=== PATIENT | female | born 1955 | race Caucasian/White ===

== ENCOUNTER 2018-01-06 12:58 | Inpatient (IN) ==
--- NOTE | 2018-01-06 13:41 | History & Physical Report ---
Date of Encounter: 01/06/18 Time of Encounter: 13:41 24 Hour HP Update - Instructions Instructions: If the History and Physical is less than 30 days old and was completed prior to A.M. admission and or procedure and has NOT been updated on calendar day of procedure please complete this update prior to performing procedure. - Update Patient reports changes in Medical Condition: No Changes in examination, assessment, or condition: No Changes in Medication: No Preop tests/diagnostics Reviewed: Yes Surgery Remains Indicated: Yes Consent for Planned Operative Procedure(s) Verified: Yes - Pre-Operative Checklist Preoperative Checklist Indicated: No Prophylactic Antibiotic Ordered: Yes Is VTE Prophylaxis Indicated?: Yes
--- NOTE | 2018-01-06 13:42 | Anesthesia Evaluation PreOp ---
Date of Encounter: 01/06/18 Time of Encounter: 13:39 - Past History Planned Operation: L robotic Total hip arthroplasty Cardiac History: Denies any Significant Hx Pulmonary History: Denies Any Significant HX IMMIGRATION MANAGER History: Other (anxiety) Other Medical History: Denies Any Significant HX Anesthesia History: No Prior Anesthetic Complications, Past Anesthesia (R foot sx, D&C tubal, breast aug) Alcohol Use: occasionally Drug use: none Medications and Allergies Aspirin Enteric Coated [Aspirin EC] 325 mg PO BID #20 tablet. 01/06/18 [Rx] Imipramine HCl [Tofranil] 25 mg PO HS 01/06/18 [History] OxyCODONE Immed Rel [Roxicodone 5 MG] 5 mg PO Q4HR PRN 5 Days #20 tablet [Rx] Temazepam [Restoril] 15 mg PO HS 01/06/18 [History] 3 Allergy/AdvReac Type Severity Reaction Status Date / Time No Known Allergies Allergy Verified 01/06/18 13:42 - Meds/Allergy Pre-op Review Medications Reviewed: Yes Allergies Reviewed: Yes Beta Blockers on Current Med List: No Anesthesia Exam Height: 64" Weight: 134lbs - HEENT Pupil (Motor): Pupils equal, EOMI Mallampati: II Teeth: Normal Oral Opening: Greater than 3 - IMMIGRATION MANAGER LOC: Oriented IMMIGRATION MANAGER Motor: Normal RUE, Normal LUE, Normal RLE, Normal LLE, Normal Face IMMIGRATION MANAGER Sensory: Normal: RUE, LUE, RLE, LLE, Face - Cardiac Rhythm: Regular - Pulmonary Breath Sounds: bilateral Clear Respiratory Effort: Symmetrical Anesthesia Assess/Plan ASA Score: 2 Modified [place] Scale for Level of Consciousness: Cooperative, oriented, and tranquil Anesthetic Plan: General Monitoring Plan: Standard Monitors Recovery Plan: PACU
--- NOTE | 2018-01-06 13:43 | Discharge Summary ---
Orders not resulted at time of discharge: Pending orders 01/06/18 13:15 XR hip complete LT [XR] Routine H/H [Hemoglobin and Hematocrit] [HEME] Routine Date of Encounter: 01/09/18 Time of Encounter: 07:49 - Discharge Diagnosis (1) Displaced fracture of left femoral neck Priority: Primary Status: Acute (2) Status post total hip replacement, left Priority: Primary Status: Acute - Hospital Course Hospital course: Ms. Ma is a 62 year old female Status post left total hip replacement for fracture. The patient had an uneventful postoperative course. They received antibiotics and physical therapy and were discharged in stable condition. There will follow -up in the office in 2 weeks. - Time Spent with Patient Total time spent providing and/or coordinating discharge services: - Discharge Medications Home Medications: Aspirin Enteric Coated [Aspirin EC] 325 mg PO BID #20 tablet. 01/06/18 [Rx] Imipramine HCl [Tofranil] 25 mg PO HS 01/06/18 [History] OxyCODONE Immed Rel [Roxicodone 5 MG] 5 mg PO Q4HR PRN 5 Days #20 tablet [Rx] Temazepam [Restoril] 15 mg PO HS 01/06/18 [History] Allergies/Adverse Reactions: 3 Allergy/AdvReac Type Severity Reaction Status Date / Time No Known Allergies Allergy Verified 01/06/18 13:42 Primary care physician: PCP NONE - Patient Status Disposition: Home, Self-Care Condition: Good Functional capacity at discharge: uses cane/walker Overall status at discharge: patient is progressing back to baseline - Discharge Instructions Follow Up With: Abrahan Olivas MD [Partnered Physician] - 02/07/18 9:20 am Barb Castro PAC [Physician Labor Law Professor] - 01/13/18 8:15 am (ALSO, 01/19/18 @ 10:30AM) NONE,PCP [Primary Care Provider] - Additional Instructions: Discharge Instructions: Total Hip Replacement Please call [facility] ([phone]), your Primary Care Physician, or report to the Emergency Room if you have any of the following symptoms: Nausea, vomiting, fever greater that 101.5, swelling, chest pain, shortness of breath, increased pain/redness/drainage/odor for your incision site, numbness/ tingling, or any other concerning symptoms. ACTIVITY:Weight-bearing as tolerated for 8 weeks with hip dislocation precautions that physical therapy taught you. You may progress as tolerated under the guidance of your physical therapist. You do not need to sleep with a pillow between your legs. You can also seep on the operative side or on your stomach. MEDICATIONS: Upon discharge resume your home medications. Take all the medications as prescribed. Take a stool softener if taking narcotic pain medications. Stool softeners are only effective if you drink enough fluids. Drink 6-8 glass of water or fluids a day, unless this is not allowed for another health problem. Despite using stool softeners, if you haven't had a bowel movement in 3 days, please switch to a gentle laxative. Gentle laxatives are sold over the counter. You should have a bowel movement within 24 hours, if not call the office. You will be discharged from the hospital with a prescription for pain medication. You are encouraged to decrease the use of narcotic pain medication as tolerated. Should you require a refill, please call the office. [facility] prescribes narcotic pain medication for only 4-6 weeks after surgery. If you require pain medication beyond this time period, you may be referred to your Primary Care Physician or to the Pain Clinic for further evaluation. Plan ahead for refills on pain medication as many narcotics either need to be picked up at the office or mailed. It is best to call 48-72 hours in advance of needing a prescription refill so you don't run out of medication. To help control the post-operative pain, you may take NSAIDs (Aleve,Advil, Motrin, ibuprofen, naprosyn) or Tylenol as prescribed on the bottle in addition to the pain medication. ANTICOAGULATION (blood thinners): Continue your Aspirin, Lovenox or Coumadin as prescribed to help prevent a blood clot in the leg or in the lungs. As long as your incision remains dry and you tolerate the NSAIDs (Aleve, Advil, Motrin, Ibuprofen, Naprosyn), it is OK to use the NSAIDS while you are taking your anticoagulation medication. Should your incision start to drain, stop the NSAID and contact our office. Common symptoms of blood clot in the legs include: localized pain, swelling, calf tenderness, redness or discoloration of the skin. Blood clot in the lung symptoms include: shortness of breath, rapid pulse, sweating, and chest pain that worsens with deep breathing, coughing up blood, lightheadedness, feelings of anxiety. If you experience any of these symptoms notify your physician immediately, go to the emergency room, or if having trouble breathing, call 911. WOUND CARE: Leave the dressing on for 7 to 10days. You may change the dressing if it is saturated greater than 50%. Do not get the dressing wet at anytime. Wash your hands with antibacterial soap, rinse and dry prior to any wound care. If you have tim the visiting nurse or rehab facility can remove the stapes 10-14 days after surgery and place steri-strips across the wound. Leave the steri-strips in place until they fall off on their own. You may let water from the shower run on top of the steri-strips. If you do not have a visiting nurse or rehab facility, you will need to return to the office at 10-14 days for the tim to be removed. If you have itching or redness around the dressing call the office. FOLLOW-UP: Please follow up with your surgeon in the orthopedic clinic in 6 weeks from the day of surgery. If you have tim that need to be removed, you will need to come back to the office in 10-14 days from the day of surgery.
[2018-01-06] MEDS ORDERED: Ethanol\\Acetic Acid\\Na Ace\\Ben 1,000 ML IRRIG.SOLN IR ONE (13:46)
[2018-01-06] MEDS ORDERED: Balanced Salt Irrig Soln. ONE ×2 (13:47→13:48)
[2018-01-06] MEDS ORDERED: Acetaminophen IV 1,000 MG/100 ML INFUS..BTL ONE (13:48)
--- NOTE | 2018-01-06 13:48 | Orthopedic History & Physical ---
Date of Encounter: 01/06/18 Time of Encounter: 13:46 Assessment and Plan (1) Displaced fracture of left femoral neck Current visit: Yes Status: Acute (2) Status post total hip replacement, left Current visit: Yes Status: Acute History of Present Illness HPI: Ms. Ma is a 62 year old female Status post fall this past Tuesday. Patient was seen in the emergency room evaluation by the ER doc patient reports a diagnosis of left knee sprain. Patient had persistent pain which worsened over the past few days was seen by her primary care doctor this morning and sent to the hospital for an x-ray. X- rays show a displaced femoral neck fracture left side. Patient was transferred to our office was evaluated by myself and Dr. Méndez. Patient is a young active female with a left us placed femoral neck fracture. Patient was ambulating on crutches nonweightbearing left side. Left lower extremity is neurovascularly intact. X-rays were reviewed and show the displaced femoral neck fracture. Based on patient's activity level and young age requisitions for a left total hip replacement. The main reason for this is that the alternative surgery is a left hip hemiarthroplasty and within her lifetime there will be effects of the metal on the cartilage requiring her to have a revision surgery with high certainty. We discussed the risks and benefits as well as recovery of the left total hip replacement. The differences between the 2 procedures. Patient has agreed to proceed with this option. We reviewed the risks and benefits as well as recovery. All questions were answered. The patient agreed to this treatment plan and appeared to understand the plan is reviewed. Past Med Surg Social Fam HX - Past Medical History Medical history: no medical history Psychiatric history: no psych history - Past Surgical History Surgical History: non-contributory - Social History Smoking Status: Never smoker Smokeless Tobacco Status: No Alcohol use: occasionally Drug use: none Medications and Allergies Aspirin Enteric Coated [Aspirin EC] 325 mg PO BID #20 tablet. 01/06/18 [Rx] Imipramine HCl [Tofranil] 25 mg PO HS 01/06/18 [History] OxyCODONE Immed Rel [Roxicodone 5 MG] 5 mg PO Q4HR PRN 5 Days #20 tablet [Rx] Temazepam [Restoril] 15 mg PO HS 01/06/18 [History] 3 Allergy/AdvReac Type Severity Reaction Status Date / Time No Known Allergies Allergy Verified 01/06/18 13:42 All Systems Reviewed: The remainder of the systems were reviewed and are negative Physical Exam - Constitutional Vitals: Temp Pulse Resp BP Pulse Ox 98.8 F 78 18 174/94 98 01/06/18 13:17 01/06/18 13:17 01/06/18 13:17 01/06/18 13:17 01/06/18 13:17 Results - Labs Labs: All other labs normal.
[2018-01-06] MEDS ORDERED: CeFAZolin Syr 2,000MG/20 ML 2,000 MG/20 ML SYRINGE IVPB ONE (13:54)
[2018-01-06] MEDS ORDERED: *HR* FentaNYL (PF) 100 MCG/2 ML VIAL ONE (13:56)
[2018-01-06] MEDS ORDERED: *HR* Midazolam HCl 2 MG/2 ML VIAL ONE (13:56)
[2018-01-06] MEDS ORDERED: Lidocaine -MPF 2% 2 ML VIAL ONE (13:57)
[2018-01-06] MEDS ORDERED: Ringers Solution, Lactated 1,000 ML IVC SCH ×2 (14:00→16:55)
[2018-01-06] MEDS ORDERED: *HR* Rocuronium Bromide 50 MG/5 ML VIAL ONE (14:14)
[2018-01-06] MEDS ORDERED: *HR* OxyCODONE Immed Rel 5 MG TABLET PO PRN ×2 (14:26→16:55)
[2018-01-06] MEDS ORDERED: *HR* Promethazine 25 MG/ML VIAL IVP PRN (14:26)
[2018-01-06] MEDS ORDERED: Ketorolac 30 MG/ML VIAL ONE (14:30)
[2018-01-06] MEDS ORDERED: Ondansetron 4 MG/2 ML VIAL ONE (14:30)
[2018-01-06] MEDS ORDERED: Dexamethasone 4 MG/ML VIAL ONE (14:30)
--- NOTE | 2018-01-06 14:43 | Orthopedic Operative Note ---
Date of procedure: 01/06/18 Pre-op diagnosis: Displaced left femoral neck fracture Post-op diagnosis: same Procedure: Procedure: Left Total Hip Replacment Estimated blood loss: 200 cc Hardware: Metal and polyethylene replacement. Tracker DM Cup: 52 acetabular cup Femoral size 8 stem Head: 12 head with Lisette Procedural Notes: 62-year-old active female with displaced left femoral neck fracture. Operative procedure: The patient was brought to the operating room and placed on the operating room table. After general anesthesia was administered the patient was placed in the lateral decubitus position with the operative leg up. All pressure points were padded appropriately and the head was stabilized in the neutral position. The operative extremity was prepped and draped in the sterile surgical fashion patient received IV antibiotic prior to skin incision. A standard posterior approach is made to the operative hip, the incision was made through the skin and subcutaneous tissue hemostasis was obtained with Bovie cautery. Using careful sharp dissection the fascia was identified and incised exposing the external rotators. The external rotators were released off the greater trochanter and tagged with #2 FiberWire suture. The capsule was T'd open and the hip was brought into internal rotation. The femoral neck cut was made at the appropriate level, the femoral head was removed separately. The femoral head stayed located as the hip was brought into internal rotation. An anterior capsulotomy was performed for the anterior retractor. Soft tissues removed from the acetabulum. Acetabulum was first reamed medially, and then reamed in 15 degrees of anteversion and 45 degrees off the horizontal. It was reamed up to the appropriate size 51 The appropriate-sized 52 acetabular cup was impacted in place in 15 degrees of anteversion and 45 degrees off the horizontal. This had good fit and fixation. The hip was brought back in to internal rotation and prepared with the box inspector followed by the canal finder followed by broaching process in 20 degrees anteversion. It was broached up to the appropriate size 8. The femoral implant was impacted in place in 20 degrees of anteversion. Trial reduction found the hip to be stable with 12 head and Lisette. The trials were removed and the real implants were impacted in place. The hip was reduced, patient had apparent equal leg lengths. The hip had excellent stability with forward flexion to 90 degrees adduction of 30 degrees and internal rotation of 60 degrees. The hip had no shuck. The hips sat for 2 minutes with an antibacterial solution solution. It was irrigated out with 2 L of pulse irrigation. The hip was closed by the PA. Fascia was closed with a running #2 PDS suture. The deep tissue was irrigated and closed deep with #1 PDS suture superficially with 0 PDS suture and skin was closed with Dermabond and zip tie. The patient was placed in a sterile dressing and abduction pillow. The patient was extubated and transferred to the recovery room in stable condition. Anesthesia: GETA Surgeon: Abrahan Olivas Was there an assistant office manager present: No Estimated blood loss (cc): 200 Condition: stable Disposition: PACU
[2018-01-06] MEDS ORDERED: *HR* PHENYLEPHRINE 1,000 MCG/10 ML SYRINGE IVP ONE (14:55)
[2018-01-06] MEDS ORDERED: Neostigmine Methylsulfate 3 MG/3 ML SYRINGE ONE (15:03)
[2018-01-06] MEDS: MORPHINE SUL Oral CONC 10 MG/0.5 ML ORAL.SYG SL PRN ×2 (15:20→15:30)
[2018-01-06 15:49] LABS: Hematocrit 31.6 % (35.3-44.9); Hemoglobin 11.3 g/dL (11.5-15.4)
--- NOTE | 2018-01-06 16:01 | Anesthesia Evaluation Post Op ---
Date of Encounter: 01/06/18 Time of Encounter: 16:00 - Vital Signs Vital Signs: Vital Signs/O2 Sat, Most Current Temp Pulse Resp BP Pulse Ox 98.3 F 66 18 80/52 95 01/06/18 15:47 01/06/18 15:47 01/06/18 15:47 01/06/18 15:47 01/06/18 15:47 - Lungs Lungs: Clear Ascult./Percussion - Airway Airway: Non-obstructed - Cardiovascular Regular Rate - Mental Status Mental Status: Alert & Oriented, Answers Appropriately - Pain Pain Scale: 4 Pain Scale used: Numeric (1 - 10) - Nausea Vomiting Nausea Vomiting: Not Present - Hydration Hydration: Tolerates oral liquids - Discharge PostOp Status: Transfer Patient to floor Attestation: I have assessed this patient and find they meet discharge criteria.
[2018-01-06] MEDS ORDERED: Ondansetron 4 MG/2 ML VIAL IVP PRN (16:55)
[2018-01-06] MEDS ORDERED: traMADol 50 MG TABLET PO PRN (16:55)
[2018-01-06] MEDS ORDERED: MOM Conc 10 ML UD.LIQ PO PRN (16:55)
[2018-01-06] MEDS ORDERED: Temazepam 15 MG CAPSULE PO PRN (16:55)
[2018-01-06] MEDS ORDERED: Naloxone 0.4 MG/ML INJ IVP PRN (16:55)
[2018-01-06] MEDS ORDERED: Sennosides 8.6 MG TABLET PO PRN (16:55)
[2018-01-06] MEDS ORDERED: *HR* Enoxaparin 30 MG/0.3 ML SYRINGE SQ SCH (18:00)
[2018-01-06] MEDS: *HR* Enoxaparin 30 MG/0.3 ML SYRINGE SQ SCH (18:37)
[2018-01-06] MEDS: Ascorbic Acid 500 MG TABLET PO SCH (18:37)
[2018-01-06] MEDS: CeFAZolin Pre 2,000 MG/100 ML 2,000 MG/100 ML BAG IVPB SCH (19:05)
[2018-01-06] MEDS ORDERED: Temazepam 15 MG CAPSULE PO SCH (21:00)
[2018-01-06] MEDS: *HR* OxyCODONE/APAP 5/325 TABLET PO PRN (21:08)
[2018-01-07 00:57] LABS: Hematocrit 28.5 % (35.3-44.9)
[2018-01-07] MEDS: CeFAZolin Pre 2,000 MG/100 ML 2,000 MG/100 ML BAG IVPB SCH (01:16)
[2018-01-07 01:18] LABS: BUN/Creatinine Ratio 18 (6-26); Blood Urea Nitrogen 14 mg/dL (8-23); Calcium 8.5 mg/dL (8.6-10.3); Carbon Dioxide 27 mEq/L (23-29); Chloride 101 mEq/L (98-107); Glucose 185 mg/dL (70-105); Osmolality,Calculated 285 (280-300); Sodium 135 mEq/L (136-145); eGFR For African Americans > 60 (> 60); eGFR For Non-African Americans > 60 (> 60)
[2018-01-07] MEDS: *HR* OxyCODONE/APAP 5/325 TABLET PO PRN ×2 (03:45→09:19)
[2018-01-07] MEDS: *HR* Enoxaparin 30 MG/0.3 ML SYRINGE SQ SCH (05:53)
[2018-01-07] MEDS ORDERED: Multivit/Ca/Min/Fe/FA 1 TAB TABLET PO SCH (09:00)
[2018-01-07] MEDS: Ascorbic Acid 500 MG TABLET PO SCH (09:17)
[2018-01-07 11:10] VITALS: BP 102/62
== END 2018-01-07 13:26 | disposition home or self-care (01) | DRG 470 ==
LOC: SAMDAY 12:58 → 3NENU 16:52
PROVIDERS: ADMIT Orthopaedic Surgery; ATTEND Orthopaedic Surgery